=== PATIENT | male | born 1995 | race Caucasian/White ===

== ENCOUNTER 2018-11-07 12:29 | Emergency (ER) | payer OTHER ==
[~2018-11-07] VITALS: Ht 195.6 cm; Wt 86.4 kg
[2018-11-07] MEDS ORDERED: IBUPROFEN 800 MG TAB PO ONE (13:00)
[2018-11-07 13:48] VITALS: BP 117/66
[2018-11-07] MEDS ORDERED: IBUP-1022 PO (13:48)
== END 2018-11-07 14:00 | disposition home or self-care (01) ==
LOC: M ED 12:29
DX: R20.2 Paresthesia of skin (principal); R22.32 Localized swelling, mass and lump, left upper limb; T50.B15A Adverse effect of smallpox vaccines, initial encounter

== ENCOUNTER 2019-01-13 15:06 | Emergency (ER) | payer OTHER ==
[~2019-01-13] VITALS: Ht 167.6 cm; Wt 95.5 kg
[~2019-01-13 15:06] MED LIST: IBUP-1022 PO
[2019-01-13] MEDS ORDERED: ACET650T15 PO (15:18)
--- NOTE | 2019-01-13 16:07 | REP ---
Left shoulder: Three views: History: Pain. Audible pop. Findings: The left glenohumeral and acromioclavicular joints are normally aligned. There is a small benign bone island in the humeral head. No fractures seen. No subluxation is noted. Periarticular soft tissues are unremarkable. Impression: Negative radiographs of the left shoulder. Electronically Signed by Jose Fry MD 01/13/2019 05:01 P
[2019-01-13 16:17] VITALS: BP 121/60
== END 2019-01-13 16:40 | disposition home or self-care (01) ==
LOC: M ED 15:06 → EDBD 15:06 → M ED 16:40
DX: M25.512 Pain in left shoulder (principal)

== ENCOUNTER 2019-05-17 00:55 | Emergency (ER) | payer OTHER ==
[~2019-05-17] VITALS: Ht 195.6 cm; Wt 97.7 kg
[~2019-05-17 00:55] MED LIST changes: +ACET650T15 PO
[2019-05-17 00:57] VITALS: BP 125/63
[2019-05-17] MEDS ORDERED: traMADol 50 MG TAB PO ONE (02:15)
--- NOTE | 2019-05-17 12:19 | REP ---
Shoulder series: Three views. History: Trauma. Findings: Three views of the left shoulder demonstrate normal alignment of the glenohumeral acromioclavicular joints. There is a bone island in the humeral head. Periarticular soft tissues are unremarkable. No fracture or subluxation is seen. No change from comparison study January 13, 2019. Impression: Negative radiographs of the left shoulder. Electronically Signed by Jose Fry MD 05/17/2019 08:01 A
== END 2019-05-17 03:21 | disposition home or self-care (01) ==
LOC: M ED 00:55
DX: M25.512 Pain in left shoulder (principal)

== ENCOUNTER 2020-05-04 13:21 | Emergency (ER) | payer OTHER ==
[~2020-05-04] VITALS: Ht 195.6 cm; Wt 97.6 kg
[2020-05-04 13:22] VITALS: BP 126/64
[2020-05-04] MEDS ORDERED: KETO10TAB PO (14:24)
[2020-05-04] MEDS ORDERED: ROBA750T4 PO (14:24)
== END 2020-05-04 14:43 | disposition home or self-care (01) ==
LOC: M ED 13:21
DX: S39.012A Strain of muscle, fascia and tendon of lower back, initial encounter (principal); M62.830 Muscle spasm of back; X50.0XXA Overexertion from strenuous movement or load, initial encounter; Y92.89 Other specified places as the place of occurrence of the external cause; Y93.B3 Activity, free weights; Y99.8 Other external cause status

== ENCOUNTER 2020-05-18 13:41 | Emergency (ER) | payer OTHER ==
[~2020-05-18] VITALS: Ht 195.6 cm; Wt 94.5 kg
[~2020-05-18 13:41] MED LIST changes: +KETO10TAB PO; +ROBA750T4 PO
--- NOTE | 2020-05-18 16:37 | REPVR ---
PROCEDURE INFORMATION: Exam: XR Lumbosacral Spine, 4 or 5 Views Exam date and time: 05/18/2020 4:06 PM Age: 24 years old Clinical indication: Injury or trauma; Injury history: PT states he was lifting; Initial encounter; Sprain or strain, lumbar ligaments; Additional info: Severe low back pain TECHNIQUE: Imaging protocol: XR of the lumbosacral spine, 4 or 5 views. COMPARISON: No relevant prior studies available. FINDINGS: Vertebrae: No acute fractures. The lumbar spine alignment is normal. Transitional-type lumbosacral anatomy is present, with 6 rib-free lumbar-type vertebral bodies present. There is complete lumbarization of S1, with no pseudo-articulations between the S1 and S2 vertebral bodies. There is a well-formed disc between the S1 and S2 vertebral bodies. Soft tissues: Unremarkable prevertebral and posterior paraspinal soft tissues. IMPRESSION: 1. No acute fractures. 2. The lumbar spine alignment is normal. 3. Transitional-type lumbosacral anatomy is present, with 6 rib-free lumbar-type vertebral bodies present. There is complete lumbarization of S1, with no pseudo-articulations between the S1 and S2 vertebral bodies. There is a well-formed disc between the S1 and S2 vertebral bodies. Electronically signed by: Lamont Veloz On 05/18/2020 16:37:50 PM
[2020-05-18 16:58] VITALS: BP 137/70
[2020-05-18] MEDS ORDERED: PRED10TA2 PO (17:03)
== END 2020-05-18 17:10 | disposition home or self-care (01) ==
LOC: M ED 13:41
DX: S39.012A Strain of muscle, fascia and tendon of lower back, initial encounter (principal); X50.0XXA Overexertion from strenuous movement or load, initial encounter; Y92.89 Other specified places as the place of occurrence of the external cause; Y93.89 Activity, other specified; Y99.1 Military activity

== ENCOUNTER 2020-05-22 09:52 | Emergency (ER) | payer OTHER ==
[~2020-05-22] VITALS: Ht 195.6 cm; Wt 97.2 kg
[~2020-05-22 09:52] MED LIST changes: +PRED10TA2 PO
[2020-05-22] MEDS ORDERED: GABAPENTIN 300 MG CAP PO ONE (10:45)
[2020-05-22] MEDS ORDERED: LIDOCAINE 5% (LIDODERM) PATCH TD ONE (10:45)
[2020-05-22] MEDS ORDERED: KETOROLAC 60MG 2ML VIAL IM ONE (10:45)
[2020-05-22] MEDS ORDERED: ACETAMINOPHEN 500 MG TAB PO ONE (10:45)
--- NOTE | 2020-05-22 11:25 | REPVR ---
PROCEDURE INFORMATION: Exam: CT Lumbar Spine Without Contrast Exam date and time: 05/22/2020 10:42 AM Age: 24 years old Clinical indication: Low back pain TECHNIQUE: Imaging protocol: Computed tomography images of the lumbar spine without contrast. Radiation optimization: All CT scans at this facility use at least one of these dose optimization techniques: automated exposure control; mA and/or kV adjustment per patient size (includes targeted exams where dose is matched to clinical indication); or iterative reconstruction. COMPARISON: CR Spine. Lumbosacral, complete 05/18/2020 4:07 PM FINDINGS: Vertebrae: No acute fracture. Normal alignment. L1-L2: No significant disc protrusion. No severe spinal canal stenosis. No significant neural foraminal narrowing. L2-L3: No significant disc protrusion. No spinal canal stenosis. No neural foraminal narrowing. L3-L4: No significant disc protrusion. No severe spinal canal stenosis. No significant neural foraminal narrowing. L4-L5: No significant disc protrusion. No severe spinal canal stenosis. No significant neural foraminal narrowing. L5-S1: There is shallow disc bulging. No severe spinal canal stenosis. No significant neural foraminal narrowing. Soft tissues: Unremarkable. IMPRESSION: No acute abnormality or advanced degenerative change. Electronically signed by: Carin Oliver On 05/22/2020 11:25:00 AM
[2020-05-22] MEDS ORDERED: NEUR300C PO (11:41)
[2020-05-22] MEDS ORDERED: LIDO5DIS41 TOP (11:45)
[2020-05-22 11:53] VITALS: BP 116/86
[2020-05-22] MEDS ORDERED: **NOTE PATIENT COMMENT** MISC XX ONE (22:00)
== END 2020-05-22 12:06 | disposition home or self-care (01) ==
LOC: M ED 09:52
DX: M54.5 Low back pain (principal); M79.604 Pain in right leg; Z79.899 Other long term (current) drug therapy
CPT/HCPCS: 72131; 96372; 99283; J1885

== ENCOUNTER 2020-07-27 14:00 | Emergency (ER) | payer OTHER ==
[~2020-07-27] VITALS: Ht 195.6 cm; Wt 99.6 kg
[~2020-07-27 14:00] MED LIST changes: +LIDO5DIS41 TOP; +NEUR300C PO
[2020-07-27] MEDS ORDERED: METH750T2 PO (14:10)
[2020-07-27] MEDS ORDERED: LIDOCAINE 5% (LIDODERM) PATCH TD ONE (15:15)
[2020-07-27] MEDS ORDERED: ACETAMINOPHEN 500 MG TAB PO ONE (15:15)
[2020-07-27] MEDS ORDERED: KETOROLAC 30 MG/ML 1ML VIAL IM ONE (15:15)
[2020-07-27 16:12] VITALS: BP 138/75
[2020-07-27] MEDS ORDERED: **NOTE PATIENT COMMENT** MISC XX SCH (21:00)
== END 2020-07-27 16:21 | disposition home or self-care (01) ==
LOC: M ED 14:00
DX: M54.5 Low back pain (principal); M51.26 Other intervertebral disc displacement, lumbar region; F17.220 Nicotine dependence, chewing tobacco, uncomplicated; Z79.899 Other long term (current) drug therapy
CPT/HCPCS: 96372; 99283; J1885